=== PATIENT | female | born 2000 | race Caucasian/White ===

== ENCOUNTER → 2018-08-30 | Outpatient (CLI) | payer BC | LOC: COL.VAS 11:00 | DX: I07.1 Rheumatic tricuspid insufficiency (principal); R55 Syncope and collapse; R11.2 Nausea with vomiting, unspecified ==

== ENCOUNTER → 2019-03-25 | Outpatient (CLI) | payer BC ==
[~2019-03-25] MED LIST: NUVARING VAG RING VG; PRILOSEC 20MG20 MG PO; ULTRAM 50MG TAB50 MG PO
== END ==
LOC: COL.RAD 14:19
DX: R10.2 Pelvic and perineal pain (principal)

== ENCOUNTER 2019-03-26 00:25 | Emergency (ER) | payer BC ==
[~2019-03-26] VITALS: Ht 177.8 cm; Wt 68.2 kg
[2019-03-26 00:37] VITALS: BP 140/91; TEMP 98
[2019-03-26] MEDS ORDERED: NUVARING VAG RING VG (00:41)
[2019-03-26] MEDS ORDERED: ULTRAM 50MG TAB50 MG PO (00:41)
[2019-03-26] MEDS ORDERED: PRILOSEC 20MG20 MG PO (00:41)
[2019-03-26 01:30] LABS: COLLECTION METHOD CLEAN CATCH
[2019-03-26 01:33] LABS: BASO % 0.3 % (0.0-2.0); EOS # 0.1 (0.0-0.7); EOS % 0.7 % (0-4.0); GRAN # 4.3 (1.4-6.5); GRAN % 57.3 % (42.2-75.2); HEMATOCRIT 39.7 % (35.0-45.0); HEMOGLOBIN 13.3 g/dl (12.0-15.0); LYMPH # 2.5 (1.2-3.4); LYMPH % 33.5 % (20.0-51.0); MEAN CELL VOLUME 95 fl (80.0-95.0); MEAN CORPUSCULAR HEMOGLOBIN 32 pg (26.0-32.0); MEAN CORPUSCULAR HGB CONC 34 g/dl (33.0-37.0); MEAN PLATELET VOLUME 9.7 fl (7.4-10.4); MONO # 0.6 (0.1-0.6); MONO % 8.1 % (1.7-9.3); PLATELET COUNT 259 K/mm3 (130-400); RED BLOOD COUNT 4.17 M/mm3 (4.10-5.30); REDCELL DISTRIBUTION WIDTH-CV 11.9 % (11.5-14.5)
[2019-03-26 01:42] LABS: BILIRUBIN,TOTAL 0.5 mg/dL (0.0-1.0); CALCIUM 9.7 mg/dL (8.4-10.2); CREATININE, serum 1.01 (0.52-1.25); POTASSIUM 3.7 mmol/L (3.4-5.0); TOTAL PROTEIN 7.1 gm/dL (6.4-8.2)
[2019-03-26 01:45] LABS: MUCOUS Present /lpf; PH 5 (5-8); SQUAMOUS EPITHELIAL 20-50 /hpf; URINE APPEARANCE Cloudy; URINE BACTERIA Rare /hpf; URINE BILIRUBIN Positive (NEGATIVE); URINE BLOOD Negative (NEGATIVE); URINE COLOR Amber; URINE GLUCOSE Negative (NEGATIVE); URINE KETONE Trace (NEGATIVE); URINE LEUKOCYTE ESTERASE 2+ (NEGATIVE); URINE NITRATE Negative (NEGATIVE); URINE PROTEIN(semi-quant) 2+ (NEGATIVE); URINE UROBILINOGEN Negative (NEGATIVE)
[2019-03-26 02:20] LABS: COLLECTION METHOD CLEAN CATCH
[2019-03-26 02:28] LABS: MUCOUS Present /lpf; PH 5 (5-8); URINE APPEARANCE Clear; URINE BACTERIA None Seen /hpf; URINE BILIRUBIN Negative (NEGATIVE); URINE BLOOD Negative (NEGATIVE); URINE COLOR Yellow; URINE GLUCOSE Negative (NEGATIVE); URINE KETONE Negative (NEGATIVE); URINE LEUKOCYTE ESTERASE Negative (NEGATIVE); URINE NITRATE Negative (NEGATIVE); URINE PROTEIN(semi-quant) 1+ (NEGATIVE); URINE UROBILINOGEN Negative (NEGATIVE)
[2019-03-26 04:37] VITALS: PULSE 88
== END 2019-03-26 04:38 | disposition home or self-care (01) ==
LOC: COL.ER 00:25
PROVIDERS: Emergency Medicine
DX: R10.2 Pelvic and perineal pain (principal)
CPT/HCPCS: J2765; J3010; J7030; Q9967

== ENCOUNTER → 2020-04-23 | Outpatient (CLI) | payer BC ==
[2020-04-23 18:04] LABS: BASO % 0.3 % (0.0-2.0); EOS % 0.7 % (0-4.0); GRAN # 3.5 (1.4-6.5); GRAN % 59.7 % (42.2-75.2); HEMATOCRIT 38.5 % (37.0-47.0); HEMOGLOBIN 12.9 g/dl (12.5-16.0); LYMPH # 1.9 (1.2-3.4); LYMPH % 32.5 % (20.0-51.0); MEAN CELL VOLUME 94 fl (80.0-100.0); MEAN CORPUSCULAR HEMOGLOBIN 31 pg (27.0-31.0); MEAN CORPUSCULAR HGB CONC 34 g/dl (33.0-37.0); MEAN PLATELET VOLUME 9.5 fl (7.4-10.4); MONO # 0.4 (0.1-0.6); MONO % 6.6 % (1.7-9.3); PLATELET COUNT 235 K/mm3 (130-400); RED BLOOD COUNT 4.11 M/mm3 (4.10-5.30); REDCELL DISTRIBUTION WIDTH-CV 11.9 % (11.5-14.5)
[2020-04-23 18:13] LABS: BILIRUBIN,TOTAL 0.5 mg/dL (0.0-1.0); CALCIUM 9.3 mg/dL (8.4-10.2); CREATININE, serum 0.76 (0.52-1.25); POTASSIUM 3.9 mmol/L (3.4-5.0); TOTAL PROTEIN 7.2 gm/dL (6.4-8.2)
[2020-04-25 19:11] LABS: IMMUNOGLOBULIN A 314 mg/dL (65-421); IMMUNOGLOBULIN G 774 mg/dL (552-1631); IMMUNOGLOBULIN M, QUANTITATIVE 149 mg/dL (33-293)
[2020-05-04 14:33] LABS: STREP PNEUMO SERO1 XXX; STREP PNEUMO SERO4 XXX
[2020-05-04 14:35] LABS: TETANUS AB XXX
== END ==
LOC: ZCOL.LAB 17:23
DX: B99.9 Unspecified infectious disease (principal)

== ENCOUNTER → 2020-05-21 | Outpatient (CLI) | payer BC | LOC: ZCOL.LAB 15:46 | DX: J02.9 Acute pharyngitis, unspecified (principal); R50.9 Fever, unspecified; R11.10 Vomiting, unspecified; R53.83 Other fatigue; Z20.828 Contact with and (suspected) exposure to other viral communicable diseases ==

== ENCOUNTER 2021-10-26 04:22 | Emergency (ER) | payer BC ==
[~2021-10-26] VITALS: Ht 177.8 cm; Wt 75.0 kg
[2021-10-26 04:30] VITALS: TEMP 97.5
[2021-10-26] MEDS ORDERED: REVIA 50MG TABL50 MG PO (04:50)
[2021-10-26 05:12] VITALS: BP 127/96; PULSE 100
== END 2021-10-26 05:13 | disposition home or self-care (01) ==
LOC: COL.ER 04:22
DX: S86.911A Strain of unspecified muscle(s) and tendon(s) at lower leg level, right leg, initial encounter (principal); M76.51 Patellar tendinitis, right knee; M79.7 Fibromyalgia; K21.9 Gastro-esophageal reflux disease without esophagitis; Z79.891 Long term (current) use of opiate analgesic; X50.1XXA Overexertion from prolonged static or awkward postures, initial encounter